=== PATIENT | female | born 1945 | race Caucasian/White ===

== ENCOUNTER 2017-07-02 22:28 | Emergency (ER) | payer MEDICARE, OTHER ==
[~2017-07-02] VITALS: Ht 160 cm; Wt 60.0 kg
[2017-07-02 22:44] VITALS: BP 132/63; PULSE 72; RESP 16; TEMP 98.6; O2SAT 98
--- NOTE | 2017-07-02 23:02 | PD ---
HPI Chief Complaint: Suicide Ideation/Attempt Time Seen by Provider: 22:59 Travel History International Travel<30 days: No Contact w/Intl Traveler<30days: No Traveled to known affect area: No History of Present Illness HPI This is a 72-year-old female who presents under Bales act [place] by the [employer]. According to her paperwork the patient took some extra pills in an attempt to harm herself. The patient reports that she has been going through a divorce and she has been feeling somewhat depressed. She today was speaking to a friend about her feelings and she told her friend that she was "tired of all this crap." She feels that the friend misconstrued her words and felt that she was insinuating a suicidal intent which she denies. The patient denies any over ingestion of any medications. She reports that she is prescribed temazepam 30 mg tablets and alprazolam 0.25 mg tablets. She reports that she took 1 of each this evening at 10 PM in an attempt to sleep. She denies any extra ingestions. She reports that she drank some shortening this evening and sangria at lunch. She drinks occasionally. She denies any illicit drug use. Denies any homicidal ideation, hallucinations. She has no medical complaints at this time. [facility] Social History Alcohol Use: Yes Tobacco Use: No Substance Use: No Allergies-Medications (Allergen,Severity, Reaction): Coded Allergies: Penicillins (Verified Allergy, Unknown, 07/02/17) Uncoded Allergies: ANTIHISTAMINES (Allergy, Unknown, 07/02/17) Reported Meds & Prescriptions Reported Meds & Active Scripts Active Bactrim DS (Sulfamethoxazole-Trimethoprim) 800-160 Mg Tab 1 Tab PO BID Reported Alprazolam 0.25 Mg Tab 0.25 Mg PO Q8H PRN Temazepam 30 Mg Cap 30 Mg PO HS PRN Review of Systems Except as stated in HPI: all other systems reviewed are Neg Physical Exam Narrative GENERAL: Pleasant well-developed well-nourished female sitting in signal 20 room. SKIN: Warm and dry. HEAD: Atraumatic. Normocephalic. EYES: Pupils equal and round. No scleral icterus. No injection or drainage. ENT: No nasal bleeding or discharge. Mucous membranes pink and moist. NECK: Trachea midline. No JVD. CARDIOVASCULAR: Regular rate and rhythm. No murmur appreciated. RESPIRATORY: No accessory muscle use. Clear to auscultation. Breath sounds equal bilaterally. GASTROINTESTINAL: Abdomen soft, non-tender, nondistended. Hepatic and splenic margins not palpable. MUSCULOSKELETAL: No obvious deformities. No clubbing. No cyanosis. No edema. NEUROLOGICAL: Awake and alert. No obvious cranial nerve deficits. Motor grossly within normal limits. Normal speech. PSYCHIATRIC: Insight and judgment appear reasonable. Appropriate mood and affect. Data Data Last Documented VS Vital Signs Date Time Temp Pulse Resp B/P (MAP) Pulse Ox O2 Delivery O2 Flow Rate FiO2 07/03/17 09:30 97.8 70 16 141/64 (89) 100 21 07/03/17 07:19 Room Air Orders Orders Psych Screen (07/02/17 22:48) Complete Blood Count With Diff (07/02/17 22:59) Comprehensive Metabolic Panel (07/02/17 22:59) Thyroid Stimulating Hormone (07/02/17 22:59) Urinalysis - C+S If Indicated (07/02/17 22:59) Oximetry (07/02/17 22:59) Ecg Monitoring (07/02/17 22:59) Oxygen Administration (07/02/17 22:59) Blood Glucose (07/02/17 22:59) Drug Screen, Random Urine (07/02/17 22:59) Alcohol (Ethanol) (07/02/17 22:59) Salicylates (Aspirin) (07/02/17 22:59) Tylenol (Acetaminophen) (07/02/17 22:59) Electrocardiogram (07/02/17 ) Urine Culture (07/03/17 01:30) Sulfamet-Trimeth Ds 800-160 Mg (Bactrim (07/03/17 02:30) Ed Discharge Order (07/03/17 09:26) Labs Laboratory Tests Test 07/02/17 23:05 07/03/17 01:30 White Blood Count 9.0 TH/MM3 Red Blood Count 4.11 MIL/MM3 Hemoglobin 13.2 GM/DL Hematocrit 38.3 % Mean Corpuscular Volume 93.1 FL Mean Corpuscular Hemoglobin 32.1 PG Mean Corpuscular Hemoglobin Concent 34.5 % Red Cell Distribution Width 13.8 % Platelet Count 218 TH/MM3 Mean Platelet Volume 8.2 FL Neutrophils (%) (Auto) 51.7 % Lymphocytes (%) (Auto) 36.3 % Monocytes (%) (Auto) 8.3 % Eosinophils (%) (Auto) 2.6 % Basophils (%) (Auto) 1.1 % Neutrophils # (Auto) 4.7 TH/MM3 Lymphocytes # (Auto) 3.3 TH/MM3 Monocytes # (Auto) 0.8 TH/MM3 Eosinophils # (Auto) 0.2 TH/MM3 Basophils # (Auto) 0.1 TH/MM3 CBC Comment DIFF FINAL Differential Comment Blood Urea Nitrogen 31 MG/DL Creatinine 1.08 MG/DL Random Glucose 107 MG/DL Total Protein 8.0 GM/DL Albumin 4.0 GM/DL Calcium Level 8.9 MG/DL Alkaline Phosphatase 91 U/L Aspartate Amino Transf (AST/SGOT) 28 U/L Alanine Aminotransferase (ALT/SGPT) 25 U/L Total Bilirubin 0.4 MG/DL Sodium Level 137 MEQ/L Potassium Level 3.5 MEQ/L Chloride Level 103 MEQ/L Carbon Dioxide Level 22.6 MEQ/L Anion Gap 11 MEQ/L Estimat Glomerular Filtration Rate 50 ML/MIN Thyroid Stimulating Hormone 3rd Gen 1.530 uIU/ML Salicylates Level LESS THAN 1.7 MG/DL Acetaminophen Level LESS THAN 2.0 MCG/ML Ethyl Alcohol Level 153 MG/DL Urine Color LIGHT-YELLOW Urine Turbidity CLEAR Urine pH 5.0 Urine Specific [place] 1.006 Urine Protein NEG mg/dL Urine Glucose (UA) NEG mg/dL Urine Ketones NEG mg/dL Urine Occult Blood NEG Urine Nitrite POS Urine Bilirubin NEG Urine Urobilinogen LESS THAN 2.0 MG/DL Urine Leukocyte Esterase LARGE Urine RBC 1 /hpf Urine WBC 20 /hpf Urine WBC Clumps FEW Urine Squamous Epithelial Cells 1 /hpf Urine Bacteria RARE /hpf Urine Mucus FEW /lpf Microscopic Urinalysis Comment CULTURE INDICATED Urine Opiates Screen NEG Urine Barbiturates Screen NEG Urine Amphetamines Screen NEG Urine Benzodiazepines Screen POS Urine Cocaine Screen NEG Urine Cannabinoids Screen NEG MDM Medical Decision Making Medical Screen Exam Complete: Yes Emergency Medical Condition: Yes Medical Record Reviewed: Yes Differential Diagnosis Adjustment reaction, major depressive disorder, acute psychosis, benzodiazepine overdose, depressive disorder not otherwise specified Narrative Course The patient was placed on ECG monitoring pulse oximetry. A 12-lead EKG, lab work, urinalysis have been ordered. The patient has her pills bottles with her , they will be counted. The patient will be monitored for some time for any evidence of respiratory depression from overuse of benzodiazepines and ultimately psychiatry will see her in regards to her Bales act. Mental health screening discussed with the patient. Psychiatric screen ordered. At the end of my shift the patient was signed out to Dr. Huff for follow-up and monitoring. Scripts Sulfamethoxazole-Trimethoprim (Bactrim DS) 800-160 Mg Tab 1 TAB PO BID for Infection, #13 TAB 0 Refills Prov: Ree Huff MD 07/03/17 Evangelista Pinon July 02, 2017 23:02
[2017-07-02 23:07] VITALS: BP 105/55; PULSE 67; RESP 16; O2SAT 99
[2017-07-02 23:12] VITALS: RESP 16; O2SAT 98
--- NOTE | 2017-07-02 23:21 | PD ---
Data Data Last Documented VS Vital Signs Date Time Temp Pulse Resp B/P (MAP) Pulse Ox O2 Delivery O2 Flow Rate FiO2 07/02/17 23:12 16 98 Room Air 07/02/17 23:07 67 07/02/17 22:44 98.6 Orders Orders Psych Screen (07/02/17 22:48) Complete Blood Count With Diff (07/02/17 22:59) Comprehensive Metabolic Panel (07/02/17 22:59) Thyroid Stimulating Hormone (07/02/17 22:59) Urinalysis - C+S If Indicated (07/02/17 22:59) Oximetry (07/02/17 22:59) Ecg Monitoring (07/02/17 22:59) Oxygen Administration (07/02/17 22:59) Blood Glucose (07/02/17 22:59) Drug Screen, Random Urine (07/02/17 22:59) Alcohol (Ethanol) (07/02/17 22:59) Salicylates (Aspirin) (07/02/17 22:59) Tylenol (Acetaminophen) (07/02/17 22:59) Electrocardiogram (07/02/17 ) Labs Laboratory Tests Test 07/02/17 23:05 White Blood Count 9.0 TH/MM3 Red Blood Count 4.11 MIL/MM3 Hemoglobin 13.2 GM/DL Hematocrit 38.3 % Mean Corpuscular Volume 93.1 FL Mean Corpuscular Hemoglobin 32.1 PG Mean Corpuscular Hemoglobin Concent 34.5 % Red Cell Distribution Width 13.8 % Platelet Count 218 TH/MM3 Mean Platelet Volume 8.2 FL Neutrophils (%) (Auto) 51.7 % Lymphocytes (%) (Auto) 36.3 % Monocytes (%) (Auto) 8.3 % Eosinophils (%) (Auto) 2.6 % Basophils (%) (Auto) 1.1 % Neutrophils # (Auto) 4.7 TH/MM3 Lymphocytes # (Auto) 3.3 TH/MM3 Monocytes # (Auto) 0.8 TH/MM3 Eosinophils # (Auto) 0.2 TH/MM3 Basophils # (Auto) 0.1 TH/MM3 CBC Comment DIFF FINAL Differential Comment Blood Urea Nitrogen 31 MG/DL Creatinine 1.08 MG/DL Random Glucose 107 MG/DL Total Protein 8.0 GM/DL Albumin 4.0 GM/DL Calcium Level 8.9 MG/DL Alkaline Phosphatase 91 U/L Aspartate Amino Transf (AST/SGOT) 28 U/L Alanine Aminotransferase (ALT/SGPT) 25 U/L Total Bilirubin 0.4 MG/DL Sodium Level 137 MEQ/L Potassium Level 3.5 MEQ/L Chloride Level 103 MEQ/L Carbon Dioxide Level 22.6 MEQ/L Anion Gap 11 MEQ/L Estimat Glomerular Filtration Rate 50 ML/MIN Thyroid Stimulating Hormone 3rd Gen 1.530 uIU/ML Salicylates Level LESS THAN 1.7 MG/DL Acetaminophen Level LESS THAN 2.0 MCG/ML Ethyl Alcohol Level 153 MG/DL [facility] Medical Record Reviewed: Yes Supervised Visit with JR: No Narrative Course During the course of the patient's emergency department visit, the patient's history, examination, and differential diagnosis were reviewed with the patient. The patient was placed on a automatic equipment technician with oximetry and frequent blood pressure monitoring. The patient had IV access obtained and blood work sent for analysis. The patient's case was checked out to me by Evangelista. Please see his complete history and physical. The patient's case was checked out to me at the conclusion of his shift. The patient presents with a history of increased depression related to currently going through a divorce. The patient expressed her depression to a friend who is concerned that she was suicidal. The patient denies at this time being suicidal. She reports that 1 hour ago at approximately 10 PM she did take her usual dose of Xanax and temazepam. The patient's Bales act has been reviewed. A psychiatric screen was ordered. The patient had a EKG done on arrival that shows a sinus rhythm heart rate of 64, QRS duration 91 ms, QTC [address] segment elevation. T waves are inverted in V1, aVL. The patient's laboratory studies were reviewed and remarkable for a white count of 9, hemoglobin 13.2, platelets 218 with 8.3 monocytes, CMP is remarkable for a BUN of 31, creatinine 1.08, glucose 107, TSH 1.53, salicylate less than 1.7, acetaminophen less than 2, alcohol level is 153. The patient was observed for any change in her level of consciousness or respiratory depression. The patient was continued on the monitor. The patient has remained easily awake able with no evidence of respiratory depression or diminished pulse oximetry. The patient has been medically cleared for evaluation by the psychiatric screener and psychiatrist under a Bales act. Diagnosis Primary Impression: Depression Qualified Codes: F32.9 - Major depressive disorder, single episode, unspecified Ree Huff MD July 02, 2017 23:21
[2017-07-02 23:24] LABS: AUTOMATED NEUTROPHIL # 4.7 TH/MM3 (1.8-7.7); BASOPHIL # 0.1 TH/MM3 (0-0.2); BASOPHIL % 1.1 % (0.0-2.0); EOSINOPHIL # 0.2 TH/MM3 (0-0.4); EOSINOPHIL % 2.6 % (0.0-4.0); HEMATOCRIT 38.3 % (35.0-46.0); HEMOGLOBIN 13.2 GM/DL (11.6-15.3); LYMPH % 36.3 % (9.0-44.0); LYMPHOCYTE # 3.3 TH/MM3 (1.0-4.8); MEAN CELL VOLUME 93.1 FL (80.0-100.0); MEAN CORPUSCULAR HEMOGLOBIN 32.1 PG (27.0-34.0); MEAN CORPUSCULAR HGB CONC 34.5 % (32.0-36.0); MEAN PLATELET VOLUME 8.2 FL (7.0-11.0); MONO % 8.3 % (0.0-8.0); MONOCYTE # 0.8 TH/MM3 (0-0.9); NEUT % 51.7 % (16.0-70.0); PLATELET COUNT 218 TH/MM3 (150-450); RED BLOOD COUNT 4.11 MIL/MM3 (4.00-5.30); RED CELL DISTRIBUTION WIDTH 13.8 % (11.6-17.2)
[2017-07-02 23:43] LABS: ALT (GPT) 25 U/L (10-53); AST (GOT) 28 U/L (15-37); BICARBONATE 22.6 MEQ/L (21.0-32.0); BLOOD UREA NITROGEN 31 MG/DL (7-18); CALCIUM 8.9 MG/DL (8.5-10.1); CHLORIDE 103 MEQ/L (98-107); CREATININE 1.08 MG/DL (0.50-1.00); GLOMERULAR FILTRATION RATE 50 ML/MIN (>89); GLUCOSE,RANDOM 107 MG/DL (74-106); SODIUM (NA) 137 MEQ/L (136-145)
[2017-07-02 23:53] LABS: ALKALINE PHOSPHATASE 91 U/L (45-117); TOTAL BILIRUBIN ADULT 0.4 MG/DL (0.2-1.0)
[2017-07-02 23:54] LABS: ACETAMINOPHEN LESS THAN 2.0 MCG/ML (10.0-30.0)
[2017-07-03] MEDS ORDERED: TEMA30CA PO (00:24)
[2017-07-03] MEDS ORDERED: ALPR0.25 PO (00:24)
[2017-07-03 01:54] LABS: BACTERIA, URINE RARE /hpf; BILIRUBIN, URINE NEG (NEG); BLOOD, URINE NEG (NEG); GLUCOSE,URINE NEG (NEG); KETONE, URINE NEG (NEG); MUCUS URINE FEW /lpf (OCC); NITRITE,URINE POS (NEG); SQUAMOUS EPITHELIAL CELL URINE 1 /hpf (0-5); URINE COLOR LIGHT-YELLOW (YELLW/STRAW); URINE LEUKOCYTE ESTERASE LARGE (NEG); WHITE BLOOD CELL CLUMPS FEW
[2017-07-03 02:00] VITALS: BP 94/45; PULSE 72; RESP 16; O2SAT 98
[2017-07-03] MEDS ORDERED: BACT800T5 PO (02:22)
[2017-07-03] MEDS ORDERED: SULFAMETHOXAZOLE-TRIMETHOPRIM DS 800-160 MG TAB PO ONE (02:30)
[2017-07-03 07:19] VITALS: BP 141/64; PULSE 72; RESP 19; O2SAT 99
--- NOTE | 2017-07-03 09:29 | PD ---
Data Data Last Documented VS Vital Signs Date Time Temp Pulse Resp B/P (MAP) Pulse Ox O2 Delivery O2 Flow Rate FiO2 07/03/17 07:19 72 19 141/64 (89) 99 Room Air 07/02/17 22:44 98.6 Orders Orders Psych Screen (07/02/17 22:48) Complete Blood Count With Diff (07/02/17 22:59) Comprehensive Metabolic Panel (07/02/17 22:59) Thyroid Stimulating Hormone (07/02/17 22:59) Urinalysis - C+S If Indicated (07/02/17 22:59) Oximetry (07/02/17 22:59) Ecg Monitoring (07/02/17 22:59) Oxygen Administration (07/02/17 22:59) Blood Glucose (07/02/17 22:59) Drug Screen, Random Urine (07/02/17 22:59) Alcohol (Ethanol) (07/02/17 22:59) Salicylates (Aspirin) (07/02/17 22:59) Tylenol (Acetaminophen) (07/02/17 22:59) Electrocardiogram (07/02/17 ) Urine Culture (07/03/17 01:30) Sulfamet-Trimeth Ds 800-160 Mg (Bactrim (07/03/17 02:30) Diet Regular Basic (07/03/17 Breakfast) Ed Discharge Order (07/03/17 09:26) Labs Laboratory Tests Test 07/02/17 23:05 07/03/17 01:30 White Blood Count 9.0 TH/MM3 Red Blood Count 4.11 MIL/MM3 Hemoglobin 13.2 GM/DL Hematocrit 38.3 % Mean Corpuscular Volume 93.1 FL Mean Corpuscular Hemoglobin 32.1 PG Mean Corpuscular Hemoglobin Concent 34.5 % Red Cell Distribution Width 13.8 % Platelet Count 218 TH/MM3 Mean Platelet Volume 8.2 FL Neutrophils (%) (Auto) 51.7 % Lymphocytes (%) (Auto) 36.3 % Monocytes (%) (Auto) 8.3 % Eosinophils (%) (Auto) 2.6 % Basophils (%) (Auto) 1.1 % Neutrophils # (Auto) 4.7 TH/MM3 Lymphocytes # (Auto) 3.3 TH/MM3 Monocytes # (Auto) 0.8 TH/MM3 Eosinophils # (Auto) 0.2 TH/MM3 Basophils # (Auto) 0.1 TH/MM3 CBC Comment DIFF FINAL Differential Comment Blood Urea Nitrogen 31 MG/DL Creatinine 1.08 MG/DL Random Glucose 107 MG/DL Total Protein 8.0 GM/DL Albumin 4.0 GM/DL Calcium Level 8.9 MG/DL Alkaline Phosphatase 91 U/L Aspartate Amino Transf (AST/SGOT) 28 U/L Alanine Aminotransferase (ALT/SGPT) 25 U/L Total Bilirubin 0.4 MG/DL Sodium Level 137 MEQ/L Potassium Level 3.5 MEQ/L Chloride Level 103 MEQ/L Carbon Dioxide Level 22.6 MEQ/L Anion Gap 11 MEQ/L Estimat Glomerular Filtration Rate 50 ML/MIN Thyroid Stimulating Hormone 3rd Gen 1.530 uIU/ML Salicylates Level LESS THAN 1.7 MG/DL Acetaminophen Level LESS THAN 2.0 MCG/ML Ethyl Alcohol Level 153 MG/DL Urine Color LIGHT-YELLOW Urine Turbidity CLEAR Urine pH 5.0 Urine Specific [place] 1.006 Urine Protein NEG mg/dL Urine Glucose (UA) NEG mg/dL Urine Ketones NEG mg/dL Urine Occult Blood NEG Urine Nitrite POS Urine Bilirubin NEG Urine Urobilinogen LESS THAN 2.0 MG/DL Urine Leukocyte Esterase LARGE Urine RBC 1 /hpf Urine WBC 20 /hpf Urine WBC Clumps FEW Urine Squamous Epithelial Cells 1 /hpf Urine Bacteria RARE /hpf Urine Mucus FEW /lpf Microscopic Urinalysis Comment CULTURE INDICATED Urine Opiates Screen NEG Urine Barbiturates Screen NEG Urine Amphetamines Screen NEG Urine Benzodiazepines Screen POS Urine Cocaine Screen NEG Urine Cannabinoids Screen NEG MDM Supervised Visit with JR: No Narrative Course Patient medically cleared. Seen by psychiatry, Dr. Napier, recommended for discharge and outpatient follow-up. Diagnosis Primary Impression: Depression Qualified Codes: F32.9 - Major depressive disorder, single episode, unspecified Additional Impression: UTI (urinary tract infection) Patient Instructions: General Instructions Additional Instruction: Follow-up with your primary doctor in the next 1-2 days. Take antibiotics as prescribed. Follow-up with outpatient mental health resources as discussed. Med/Other Pt SpecificInfo: Prescription(s) given Scripts Sulfamethoxazole-Trimethoprim (Bactrim DS) 800-160 Mg Tab 1 TAB PO BID for Infection, #13 TAB 0 Refills Prov: Ree Huff MD 07/03/17 Disposition: DISCHARGE HOME Condition: Stable Pieter Camarillo MD July 03, 2017 09:29
[2017-07-03 09:30] VITALS: BP 141/64; TEMP 97.8
--- NOTE | 2017-07-03 10:56 | PD ---
History of Present Illness Chief Complaint: Suicide Ideation/Attempt Time Seen by Provider: 09:00 Travel History International Travel<30 Days: No Contact w/Intl Traveler<30days: No Known affected area: No Legal Status Legal Status: Bales Act Bales Act Signed By: Chela Bales Act Comment: 2017 @ 2150 History of Present Illness: Very pleasant 72-year-old female evaluated by this physician at bedside. Nurse Andrea was with this physician at the time. Case discussed with ED nurse Mariam. Patient is very pleasant and denies any suicidal or homicidal ideation , plan or intent. Her cognition is intact and she demonstrates no psychotic symptoms. She is verbally kathleen for safety and she appears competent to do so. She does admit to some depression as she and her are getting . However, she plans to go to her family physician for antidepressant medication. PFSH Past Medical History Asthma: Yes Autoimmune Disease: Yes (CRESE) Depression: Yes Diminished Hearing: No Immunizations Current: Yes Past Surgical History Appendectomy: Yes Eye Surgery: Yes (CATARACTS) Hysterectomy: Yes Psychiatric History Psychiatric History Hx Psychiatric Treatment: NONE History of Inpatient Treatment: No Guns or firearms in home: No Social History Hx Alcohol Use: Yes Hx Tobacco Use: No Hx Substance Use: No Hx of Substance Use Treatment: No Allergies-Medications (Allergen,Severity, Reaction): Coded Allergies: Penicillins (Verified Allergy, Unknown, 07/02/17) Uncoded Allergies: ANTIHISTAMINES (Allergy, Unknown, 07/02/17) Reported Meds & Prescriptions Reported Meds & Active Scripts Active Bactrim DS (Sulfamethoxazole-Trimethoprim) 800-160 Mg Tab 1 Tab PO BID Reported Alprazolam 0.25 Mg Tab 0.25 Mg PO Q8H PRN Temazepam 30 Mg Cap 30 Mg PO HS PRN Review of Systems ROS Limitations: Clinical Condition Psychiatric: COMPLAINS OF: Depression Except as stated in HPI: all other systems reviewed are Neg Mental Status Examination Appearance: Appropriate Consciousness: Alert Orientation: x4 Motor Activity: Normal gait Speech: Unremarkable Language: Adequate Fund of Knowledge: Adequate Attention and Concentration: Adequate Memory: Unremarkable Mood: Appropriate Affect: Appropriate Thought Process & Associations: Intact Thought Content: Appropriate Hallucination Type: None Delusion Type: None Suicidal Ideation: No Suicidal Plan: No Suicidal Intention: No Homicidal Ideation: No Homicidal Plan: No Homicidal Intention: No Insight: Adequate Judgment: Adequate MDM Medical Decision Making Medical Record Reviewed: Yes Assessment/Plan Patient evaluated at bedside. Electronic medical record reviewed. Case discussed with nurses. She does not meet Bales act criteria at this time. She does not wish to be hospitalized for psychiatric purposes. She is capable and willing to accept treatment on an outpatient basis. Orders Orders Psych Screen (07/02/17 22:48) Complete Blood Count With Diff (07/02/17 22:59) Comprehensive Metabolic Panel (07/02/17 22:59) Thyroid Stimulating Hormone (07/02/17 22:59) Urinalysis - C+S If Indicated (07/02/17 22:59) Oximetry (07/02/17 22:59) Ecg Monitoring (07/02/17 22:59) Oxygen Administration (07/02/17 22:59) Blood Glucose (07/02/17 22:59) Drug Screen, Random Urine (07/02/17 22:59) Alcohol (Ethanol) (07/02/17 22:59) Salicylates (Aspirin) (07/02/17 22:59) Tylenol (Acetaminophen) (07/02/17 22:59) Electrocardiogram (07/02/17 ) Urine Culture (07/03/17 01:30) Sulfamet-Trimeth Ds 800-160 Mg (Bactrim (07/03/17 02:30) Ed Discharge Order (07/03/17 09:26) Results Vital Signs Date Time Temp Pulse Resp B/P (MAP) Pulse Ox O2 Delivery O2 Flow Rate FiO2 07/03/17 09:30 97.8 70 16 141/64 (89) 100 21 07/03/17 07:19 72 19 141/64 (89) 99 Room Air 07/03/17 02:00 72 16 94/45 (61) 98 Room Air 07/02/17 23:12 16 98 Room Air 07/02/17 23:12 98 Room Air 07/02/17 23:07 67 16 105/55 (72) 99 Room Air 07/02/17 22:44 98.6 72 16 132/63 (86) 98 Laboratory Tests Test 07/02/17 23:05 07/03/17 01:30 White Blood Count 9.0 Red Blood Count 4.11 Hemoglobin 13.2 Hematocrit 38.3 Mean Corpuscular Volume 93.1 Mean Corpuscular Hemoglobin 32.1 Mean Corpuscular Hemoglobin Concent 34.5 Red Cell Distribution Width 13.8 Platelet Count 218 Mean Platelet Volume 8.2 Neutrophils (%) (Auto) 51.7 Lymphocytes (%) (Auto) 36.3 Monocytes (%) (Auto) 8.3 Eosinophils (%) (Auto) 2.6 Basophils (%) (Auto) 1.1 Neutrophils # (Auto) 4.7 Lymphocytes # (Auto) 3.3 Monocytes # (Auto) 0.8 Eosinophils # (Auto) 0.2 Basophils # (Auto) 0.1 CBC Comment DIFF FINAL Differential Comment Blood Urea Nitrogen 31 Creatinine 1.08 Random Glucose 107 Total Protein 8.0 Albumin 4.0 Calcium Level 8.9 Alkaline Phosphatase 91 Aspartate Amino Transf (AST/SGOT) 28 Alanine Aminotransferase (ALT/SGPT) 25 Total Bilirubin 0.4 Sodium Level 137 Potassium Level 3.5 Chloride Level 103 Carbon Dioxide Level 22.6 Anion Gap 11 Estimat Glomerular Filtration Rate 50 Thyroid Stimulating Hormone 3rd Gen 1.530 Salicylates Level LESS THAN 1.7 Acetaminophen Level LESS THAN 2.0 Ethyl Alcohol Level 153 Urine Color LIGHT-YELLOW Urine Turbidity CLEAR Urine pH 5.0 Urine Specific [place] 1.006 Urine Protein NEG Urine Glucose (UA) NEG Urine Ketones NEG Urine Occult Blood NEG Urine Nitrite POS Urine Bilirubin NEG Urine Urobilinogen LESS THAN 2.0 Urine Leukocyte Esterase LARGE Urine RBC 1 Urine WBC 20 Urine WBC Clumps FEW Urine Squamous Epithelial Cells 1 Urine Bacteria RARE Urine Mucus FEW Microscopic Urinalysis Comment CULTURE INDICATED Urine Opiates Screen NEG Urine Barbiturates Screen NEG Urine Amphetamines Screen NEG Urine Benzodiazepines Screen POS Urine Cocaine Screen NEG Urine Cannabinoids Screen NEG Date/Time Source Procedure Growth Status 07/03/17 01:30 Urine Clean Catch Urine Culture Pending Received Diagnosis Primary Impression: Adjustment disorder with depressed mood Departure Forms: Tests/Procedures Patient Instructions: General Instructions Additional Instructions: Follow-up with your primary doctor in the next 1-2 days. Take antibiotics as prescribed. Follow-up with outpatient mental health resources as discussed. Prescriptions Sulfamethoxazole-Trimethoprim (Bactrim DS) 800-160 Mg Tab 1 TAB PO BID for Infection, #13 TAB 0 Refills Prov: Ree Huff MD 07/03/17 Disposition: 01 DISCHARGE HOME Condition: Stable Parviz Napier MD July 03, 2017 10:56
--- NOTE | 2017-07-03 22:23 | EKG ---
Date Performed: 07/02/2017 Time Performed: 23:08:25 PTAGE: 72 years EKG: Sinus rhythm MODERATE ST DEPRESSION ABNORMAL ECG NO PREVIOUS TRACING DOCTOR: Jerome Flores Interpretating Date/Time 07/03/2017 22:21:41
== END 2017-07-03 09:49 | disposition home or self-care (01) ==
LOC: NEDAMB 22:28 → NEPE 07-03 09:49
DX: F43.21 Adjustment disorder with depressed mood (principal); N39.0 Urinary tract infection, site not specified; Z79.899 Other long term (current) drug therapy
CPT/HCPCS: 80053; 80307; 81001; 84443; 85025; 87077; 87086; 87186; 93005; 99284